=== PATIENT | male | born 1965 | race Caucasian/White ===

== ENCOUNTER → 2022-10-14 08:35 | Outpatient (BNVA) | payer MEDICARE, SELFPAY | PROVIDERS: PCP Nurse Practitioner Family; Visit Provider Nurse Practitioner Family | DX: E03.9 Hypothyroidism, unspecified (principal); Z12.5 Encounter for screening for malignant neoplasm of prostate | CPT/HCPCS: 80053; 80061; 84439; 84443; 85025; G0103 ==

== ENCOUNTER 2023-02-11 10:37 | Outpatient (CLI) | payer MEDICARE, SELFPAY ==
--- NOTE | 2023-02-11 11:00 | MR_ITS ---
WS: [id number] MRI CERVICAL SPINE NONCONTRAST TECHNIQUE: Sagittal T1, T2 and STIR imaging. Axial T2, gradient, and fiesta imaging. 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 COMPARISON: None. FINDINGS: Straightening of the normal cervical lordosis. Mild spondylitic changes. Cord signal is normal. 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 C2-C3: Normal. C3-C4: Mild disc osteophyte complex with endplate ridging. Mild LEFT foraminal narrowing. Mild facet arthropathy. C4-C5: Disc osteophyte complex with endplate ridging. Mild LEFT foraminal narrowing. Moderate facet a rthropathy. Spinal canal is patent C5-C6: Disc osteophyte complex with endplate ridging. Mild central canal stenosis. Severe LEFT and mi ld RIGHT bony foraminal narrowing. Moderate facet arthropathy. C6-C7: Disc osteophyte complex with endplate ridging. Moderate to severe LEFT bony foraminal narrowin g. Mild RIGHT foraminal narrowing. Mild central canal stenosis. Mild facet arthropathy. C7-T1: Normal Visualized brain stem structures: Normal. Prevertebral soft tissues: Normal. MR/MR cervical spin wo con* [id number] IMPRESSION: 1. Straightening of the normal cervical lordosis. Mild spondylitic changes. 2. Disc osteophyte complexes at C5-C6 and C6-C7 with mild central canal stenos is. 3. Moderate to severe LEFT C5-C6 and LEFT C6-C7 bony foraminal narrowing.
== END 2023-02-11 10:38 | disposition home or self-care (01) ==
PROVIDERS: PCP Nurse Practitioner Family; Visit Provider Nurse Practitioner Family
DX: M47.892 Other spondylosis, cervical region (principal); M25.78 Osteophyte, vertebrae; M48.02 Spinal stenosis, cervical region
CPT/HCPCS: 72141